=== PATIENT | female | born 1950 | race Caucasian/White ===

== ENCOUNTER 2020-05-08 10:04 | Emergency (ER) | payer MEDICARE ==
[~2020-05-08] VITALS: Ht 167.6 cm; Wt 81.0 kg
[2020-05-08] MEDS ORDERED: ULTRAM50 MG PO (11:42)
[2020-05-08 11:57] VITALS: BP 127/50
== END 2020-05-08 11:58 | disposition home or self-care (01) ==
LOC: ED 10:04
DX: S32.010A Wedge compression fracture of first lumbar vertebra, initial encounter for closed fracture (principal); S50.311A Abrasion of right elbow, initial encounter; I10 Essential (primary) hypertension; W10.8XXA Fall (on) (from) other stairs and steps, initial encounter; Y92.029 Unspecified place in mobile home as the place of occurrence of the external cause